=== PATIENT | male | born 1990 | race American Indian/Alaskan Native ===

== ENCOUNTER 2018-01-21 18:32 | Emergency (ER) | payer SELFPAY ==
[2018-01-21 19:01] VITALS: BP 131/81
[2018-01-21] MEDS ORDERED: NACL 0.9% 500 ML 500 ML IV ONE (19:04)
[2018-01-21 19:46] LABS: INR 1.02 (0.87-1.13)
[2018-01-21 19:51] LABS: Alanine Aminotransferase 9 units/L (7-56); Albumin 4.3 g/dL (3.9-5); BUN/Creatinine Ratio 9; Blood Urea Nitrogen 7 mg/dL (9-20); Calcium 9.7 mg/dL (8.4-10.2); Hemolysis Index 2
[2018-01-21 19:53] LABS: Basophils % (Auto) 0.8 % (0.0-1.8); Hemoglobin 14.6 gm/dl (11.8-15.2); Lymphocytes # (Auto) 0.7 K/mm3 (1.2-5.4); Mean Corpuscular HGB Conc 33 % (32-34); Mean Corpuscular Hemoglobin 30 pg (28-32); Mean Corpuscular Volume 91 fl (84-94); Monocytes # (Auto) 0.4 K/mm3 (0.0-0.8); Monocytes % (Auto) 7.7 % (0.0-7.3); Platelet Count 237 K/mm3 (140-440); Red Blood Count 4.86 M/mm3 (3.65-5.03); Red Cell Distribution Width 13.4 % (13.2-15.2)
[2018-01-21] MEDS ORDERED: DECADRON IV ONE (20:20)
[2018-01-21] MEDS ORDERED: ZOFRAN IV ONE (20:20)
[2018-01-21] MEDS ORDERED: MORPHINE IV ONE (20:20)
[2018-01-21] MEDS ORDERED: NACL 0.9% 1000 ML 1,000 ML IV ONE (20:20)
--- NOTE | 2018-01-21 20:26 | Emergency Department Report ---
ED Headache HPI - General Chief Complaint: Headache Stated Complaint: MIGRAINE HEADACHE Time Seen by Provider: 01/21/18 20:15 Source: patient - History of Present Illness Initial Comments: Patient is 27-year-old male with no significant past medical history. Patient presented to his headache for the last week. Patient stated that his symptoms started with abscess teeth that he was prescribed penicillin for that. Patient stated that he had a history of migraine. Denied any neck stiffness or neck pain. This in stated that he is nauseated but no vomiting. Patient denied any weakness, numbness or tingling sensation. No bowel or bladder incontinence. Timing/Duration: 1 week Quality: moderate Head Injury Location: parietal Recent Head Trauma: no recent headache/trauma, chronic headaches Modifying Factors: worse with: cold therapy, exposure to light, immobilization, medication, movement, rest, other Associated Symptoms: denies symptoms, facial pain, fever/chills, nausea/vomiting , nasal congestion, nasal drainage, sinus infection. denies: confusion, fatigue , flushing, loss of consciousness, numbness in legs/feet, rash, seizures, stiff neck, vision changes, weakness Allergies/Adverse Reactions: Allergies No Known Allergies Allergy (Unverified 12/06/15 22:03) Home Medications: Ambulatory Orders Penicillin Vk 0 mg PO 01/21/18 ED Review of Systems ROS: Stated complaint: MIGRAINE HEADACHE Other details as noted in HPI Comment: All other systems reviewed and negative Constitutional: fever. denies: chills, malaise, weakness Respiratory: denies: cough, orthopnea, shortness of breath, SOB with exertion, SOB at rest, wheezing Cardiovascular: denies: chest pain, palpitations Gastrointestinal: denies: abdominal pain Genitourinary: denies: urgency, dysuria, frequency, hematuria Neurological: denies: headache ED Past Medical Hx - Past Medical History Hx Headaches / Migraines: Yes (sinusitis) Hx Psychiatric Treatment: No Hx Asthma: Yes Additional medical history: IBS - Surgical History Past Surgical History?: No - Social History Smoking Status: Never Smoker Substance Use Type: None - Medications Home Medications: Home Medications Medication Instructions Recorded Confirmed Last Taken Type Penicillin Vk 0 mg PO 01/21/18 Unknown History ED Physical Exam - General Limitations: No Limitations General appearance: alert, in no apparent distress - Head Head exam: Present: atraumatic, normocephalic, normal inspection - Eye Eye exam: Present: normal appearance, PERRL - ENT ENT exam: Present: normal exam, normal orophraynx, mucous membranes dry - Neck Neck exam: Present: normal inspection, full ROM. Absent: tenderness, meningismus, lymphadenopathy, thyromegaly - Respiratory Respiratory exam: Present: normal lung sounds bilaterally. Absent: respiratory distress, wheezes, rales, rhonchi, stridor, chest wall tenderness, accessory muscle use, decreased breath sounds, prolonged expiratory - Cardiovascular Cardiovascular Exam: Present: regular rate, normal rhythm, normal heart sounds - GI/Abdominal GI/Abdominal exam: Present: soft, normal bowel sounds. Absent: distended, tenderness, guarding, rebound, rigid, diminished bowel sounds, organomegaly, mass, bruit, pulsatile mass, hernia - Extremities Exam Extremities exam: Present: normal inspection, full ROM, normal capillary refill. Absent: tenderness, pedal edema, joint swelling, calf tenderness - Back Exam Back exam: Present: normal inspection, full ROM. Absent: CVA tenderness (R), CVA tenderness (L), muscle spasm, paraspinal tenderness, vertebral tenderness - Neurological Exam Neurological exam: Present: alert, oriented X3, CN II-XII intact, normal gait, reflexes normal. Absent: abnormal gait - Skin Skin exam: Present: warm, intact, normal color ED Course Vital Signs 01/21/18 18:55 Temperature 100.4 F H Pulse Rate 85 Respiratory 16 Rate Blood Pressure 131/81 O2 Sat by Pulse 100 Oximetry ED Medical Decision Making - Lab Data Result diagrams: 01/21/18 19:16 01/21/18 19:16 - Radiology Data Radiology results: report reviewed Referring Physician: LIU KING Patient Name: MAXIM REDDY Date of : 1990 Sex: Male Report Date: 2018-01-21 Report Status: Finalized Findings [facility] [address] [place] [address] XRay Report Signed Patient: MAXIM REDDY MR#: [id number] : 1990 Acct:[id number] Age/Sex: 27 / M ADM Date: 01/21/18 Loc: ED Attending Dr: Ordering Physician: LIU KING Date of Service: 01/21/18 Procedure(s): XR chest routine 2V Accession Number(s): [id number] cc: LIU KING Fluoro Time In Minutes: FINAL REPORT PROCEDURE: XR CHEST ROUTINE 2V TECHNIQUE: PA and lateral chest radiographs were obtained. CPT 19942 HISTORY: possible Sepsis COMPARISON: No prior studies are available for comparison. FINDINGS: Heart: Normal. Mediastinum/Vessels: Normal. Lungs/Pleural space: Normal. Bony thorax: No acute osseous abnormality. Other: IMPRESSION: Normal examination. Transcribed By: BRRubia Dictated By: ORIANA ANDREW MD Electronically Authenticated By: ORIANA ANDREW MD Signed Date/Time: 01/21/182109 Referring Physician: LIU KING Patient Name: MAXIM REDDY Date of : 1990 Sex: Male Report Date: 2018-01-21 Report Status: Finalized Findings [facility] [address] [place] [address] Cat Scan Report Signed Patient: MAXIM REDDY MR#: [id number] : 1990 Acct:[id number] Age/Sex: 27 / M ADM Date: 01/21/18 Loc: ED Attending Dr: Ordering Physician: LIU KING Date of Service: 01/21/18 Procedure(s): CT head/brain wo con Accession Number(s): [id number] cc: LIU KING FINAL REPORT EXAM: CT HEAD/BRAIN WO CON HISTORY: headache TECHNIQUE: CT was performed from the foramen magnum through the vertex in the axial plane without the use of intravenous contrast. PRIORS: None. FINDINGS: The bartlett/white matter attenuation pattern is normal. There is no mass lesion or mass effect. There are no abnormal extra-axial fluid collections. There is no evidence of acute intracranial hemorrhage or infarct. The ventricles are of normal size and configuration. The skull and orbits are unremarkable. There is diffuse opacification of the left ethmoid air cells. There is mucosal thickening in the left frontal sinus. IMPRESSION: Normal CT of the head. Chronic left ethmoid and frontal sinus disease Transcribed By: KIANA Dictated By: AN GREEN MD Electronically Authenticated By: AN GREEN MD Signed Date/Time: 01/21/182105 DD/ 05 TD/TT: 01/21/182105 DD/ 09 TD/TT: 01/21/182109 - Medical Decision Making Referring Physician: LIU KING Patient Name: MAXIM REDDY Date of : 1990 Sex: Male Report Date: 2018-01-21 Report Status: Finalized Findings [facility] [address] [place] [address] Cat Scan Report Signed Patient: MAXIM REDDY MR#: [id number] : 1990 Acct:[id number] Age/Sex: 27 / M ADM Date: 01/21/18 Loc: ED Attending Dr: Ordering Physician: LIU KING Date of Service: 01/21/18 Procedure(s): CT head/brain wo con Accession Number(s): [id number] cc: LIU KING FINAL REPORT EXAM: CT HEAD/BRAIN WO CON HISTORY: headache TECHNIQUE: CT was performed from the foramen magnum through the vertex in the axial plane without the use of intravenous contrast. PRIORS: None. FINDINGS: The bartlett/white matter attenuation pattern is normal. There is no mass lesion or mass effect. There are no abnormal extra-axial fluid collections. There is no evidence of acute intracranial hemorrhage or infarct. The ventricles are of normal size and configuration. The skull and orbits are unremarkable. There is diffuse opacification of the left ethmoid air cells. There is mucosal thickening in the left frontal sinus. IMPRESSION: Normal CT of the head. Chronic left ethmoid and frontal sinus disease Transcribed By: [facility] Dictated By: AN GREEN MD Electronically Authenticated By: AN GREEN MD Signed Date/Time: 01/21/182105 DD/ 05 TD/TT: 01/21/182105 Critical care attestation.: If time is entered above; I have spent that time in minutes in the direct care of this critically ill patient, excluding procedure time. ED Disposition Clinical Impression: Headache, Acute sinusitis, UTI (urinary tract infection) Disposition: -01 TO HOME OR SELFCARE Is pt being admited?: No Condition: Stable Instructions: Urinary Tract Infection in Men (ED), Acute Bacterial Rhinosinusitis (ED), Acute Headache (ED) Referrals: PRIMARY CARE,MD [Primary Care Provider] - 3-5 Days
--- NOTE | 2018-01-21 21:11 | Cat Scan Report ---
FINAL REPORT EXAM: CT HEAD/BRAIN WO CON HISTORY: headache TECHNIQUE: CT was performed from the foramen magnum through the vertex in the axial plane without the use of intravenous contrast. PRIORS: None. FINDINGS: The bartlett/white matter attenuation pattern is normal. There is no mass lesion or mass effect. There are no abnormal extra-axial fluid collections. There is no evidence of acute intracranial hemorrhage or infarct. The ventricles are of normal size and configuration. The skull and orbits are unremarkable. There is diffuse opacification of the left ethmoid air cells. There is mucosal thickening in the left frontal sinus. IMPRESSION: Normal CT of the head. Chronic left ethmoid and frontal sinus disease
--- NOTE | 2018-01-21 21:16 | XRay Report ---
FINAL REPORT PROCEDURE: XR CHEST ROUTINE 2V TECHNIQUE: PA and lateral chest radiographs were obtained. CPT 12583 HISTORY: possible Sepsis COMPARISON: No prior studies are available for comparison. FINDINGS: Heart: Normal. Mediastinum/Vessels: Normal. Lungs/Pleural space: Normal. Bony thorax: No acute osseous abnormality. Other: IMPRESSION: Normal examination.
[2018-01-21 21:19] LABS: Bilirubin,Urine NEG (Negative); Blood,Urine SM (Negative); Color,Urine Yellow (Yellow); Mucus,Urine 2+ /HPF; Protein,Urine <15 mg/dL mg/dL (Negative); Urobilinogen,Urine < 2.0 mg/dL (<2.0)
[2018-01-21] MEDS ORDERED: ZITHROMAX PO ONE (21:37)
[2018-01-21] MEDS ORDERED: ROCEPHIN/NS 1 GM/50 ML 1 GM/50 ML BAG IV ONE (21:37)
[2018-01-21] MEDS ORDERED: cefTRIAXone 1 GM in NACL 0.9% 20 ML IV ONE (21:45)
== END 2018-01-21 23:45 | disposition home or self-care (01) ==
LOC: ED 18:32
DX: G43.909 Migraine, unspecified, not intractable, without status migrainosus (principal); N39.0 Urinary tract infection, site not specified; J01.10 Acute frontal sinusitis, unspecified; J01.20 Acute ethmoidal sinusitis, unspecified
CPT/HCPCS: 36415; 70450; 71046; 80053; 81001; 82140; 82805; 85025; 85610; 87040; 87086; 96361; 96374; 96375; 99285; J0696; J1100; J2270; J2405; J7030